=== PATIENT | male | born 1995 | race Two or more races ===

== ENCOUNTER 2020-02-10 11:07 | Inpatient (IN) | payer MEDICAID, OTHER ==
[~2020-02-10] VITALS: Ht 170.2 cm; Wt 91.0 kg
[2020-02-11] MEDS ORDERED: acetaminophen 325mg tablet PO PRN ×2 (13:25)
[2020-02-11] MEDS ORDERED: traZODone 50mg tablet PO PRN (13:25)
[2020-02-11] MEDS ORDERED: magnesium hydroxide 30ml (MOM) UD suspension PO PRN (13:25)
[2020-02-11] MEDS ORDERED: mag hydrox/Alum hydrox/simeth 30ml oral suspension PO PRN (13:25)
[2020-02-11] MEDS ORDERED: loperamide 2mg capsule PO PRN (13:25)
[2020-02-11 14:00] VITALS: BP 127/77
[2020-02-11] MEDS ORDERED: NO HOME MEDS (14:39)
[2020-02-11] MEDS ORDERED: FLU VACC QS2020-21(6MOS UP)/PF 60 MCG/0.5 ML SYRINGE IMVAC ONE (14:45)
--- NOTE | 2020-02-11 16:29 | NUR ---
ADMIT NOTE: Legal Hold: 5150 for DTS Pt brought on to unit by [employer]; pts belongings inventoried, pt showered, and skin check completed by 2 RNs. He is free of skin ailments. Pt states he has felt depressed and vaguely suicidal most my life and no matter how hard he tries he cant fight these feelings. The last 6 months has heightened these feelings. He is overwhelmed, hopeless, anxious and SI with a plan. He has thought about slitting wrists, or driving somewhere to shoot himself. He rates his SI at 7/10 , Depression 7/10, and anxiety 4/10 but they just gave me medications before coming here and they make me feel sleepy and less anxious. Pt is concerned about medications making him too sleepy I dont want to have trouble thinking on my day to day. Pt states recent triggers are his work environment (coworkers make racist comments, he feels judgement since receiving a raise, no teamwork), but despite this he has worked there for 2 years, works hard, and enjoys the job itself. 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 Another recent trigger is potential break up with gf with whom he has a four year old son (she found out I cheated once when I was 20 years old and we were together, she wont look at me the same). Since their estrangement he has been unable to see his son, which is his consistent answer as to why he doesnt kill himself and has a reason to live. Pt also states he has support from his parents and his oralia. Pt also made comments of a paranoid nature, stating people from my work are following me. I know they followed me to the hospital in [place]. And the other day I was talking about puppies then there were 3 puppies on my front lawn. Melissa seen [address] in my neighborhood and I know that they are watching me. Pt states when he feels this way he has difficulty falling and staying asleep. Pt states he does not hear AH, only his internal voice telling him to just do it when he makes plans to commit suicide. He states he saw things in the TV once when I was 11 or 14 but when I turned around it wasnt there when asked about VH. Medical Hx: None aside from a surgery on his shoulder when he was 15 yo r/t cartilage/joint issues Drugs: Tobacco Socially, THC Daily, Alcohol Beer, a few nightly or on the weekend, Cocaine Intermittent, last use 3 weeks ago MH Hx: None Support: Parents, Child, Jainism Assess: +SI, +Paranoid Statements, +Dep, +Anx, Eye Contact: Direct, Pt presents as tired and hopeless, Affect: Blunted Other: Pt would like the Flu Vaccine.
[2020-02-11] MEDS ORDERED: docusate sod 100mg capsule PO PRN (17:05)
[2020-02-11 20:00] VITALS: BP 134/83
[2020-02-11] MEDS: olanzapine 10mg tablet PO SCH (20:54)
--- NOTE | 2020-02-12 00:08 | NUR ---
Legal hold:5150 Client on voluntary/involuntary status for DTS. Report received from ROBBIN Weeks with use of SBAR. Why are they here: Pt brought on to unit by [employer]; pts belongings inventoried, pt showered, and skin check completed by 2 RNs. He is free of skin ailments. Pt states he has felt depressed and vaguely suicidal most my life and no matter how hard he tries he cant fight these feelings. The last 6 months has heightened these feelings. He is overwhelmed, hopeless, anxious and SI with a plan. He has thought about slitting wrists, or driving somewhere to shoot himself. He rates his SI at 7/10 , Depression 7/10, and anxiety 4/10 but they just gave me medications before coming here and they make me feel sleepy and less anxious. Pt is concerned about medications making him too sleepy I dont want to have trouble thinking on my day to day. Pt states recent triggers are his work environment (coworkers make racist comments, he feels judgement since receiving a raise, no teamwork), but despite this he has worked there for 2 years, works hard, and enjoys the job itself. 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 Another recent trigger is potential break up with gf with whom he has a four year old son (she found out I cheated once when I was 20 years old and we were together, she wont look at me the same). Since their estrangement he has been unable to see his son, which is his consistent answer as to why he doesnt kill himself and has a reason to live. Pt also states he has support from his parents and his oralia. Pt also made comments of a paranoid nature, stating people from my work are following me. I know they followed me to the hospital in [place]. And the other day I was talking about puppies then there were 3 puppies on my front lawn. Melissa seen [address] in my neighborhood and I know that they are watching me. Pt states when he feels this way he has difficulty falling and staying asleep. Pt states he does not hear AH, only his internal voice telling him to just do it when he makes plans to commit suicide. He states he saw things in the TV once when I was 11 or 14 but when I turned around it wasnt there when asked about VH. Assessment What has happened this shift: Pt was up and in Dr office at shift change. Pt is with drawn but answers questions. Pt ate snack in group room then went back to his room for the rest of shift. Pt was med compliant has new order for Zyprexa. He received his flu shot and went to bed. S/I, H/I:yes A/VH: yes Sleep:See sleep hrs ADL's:independent Group attendance:none Were meds taken:yes Any med S/E none Mental Status Exam Appearance:clean in green scrubs Eye contact:[good Behavior: with drawn Speech:clear Mood:depressed Affect:flat Thought process:intact Thought Content:family Cognition: A/O x3 Insight: Poor Judgment:Poor Interventions PRN's used: Therapeutic interventions: 1:1 assessment, Medication education, limit setting, Q 15 minute safety checks Restraints/seclusion/emergency medication: NA Justification of Continued Inpatient Treatment : Pt is in need of crisis intervention and medication stabilization.
[2020-02-12] MEDS: LORazepam 1 MG tablet PO PRN ×4 (06:23→20:11)
[2020-02-12 07:56] VITALS: BP 126/83
[2020-02-12 09:38] LABS: HEMOGLOBIN A1C 5.8 % (4.5-6.2)
[2020-02-12 09:43] LABS: CHOL/HDL RATIO 4.9 (0.00-4.99); CHOLESTEROL 171 MG/DL (0-200); HDL CHOLESTEROL 35 MG/DL (35-60); LDL CHOLESTEROL 116 MG/DL (50-100); TRIGLYCERIDES 85 MG/DL (20-135)
--- NOTE | 2020-02-12 17:50 | NUR ---
Nursing Progress Note Legal hold:5150 Client on voluntary/involuntary status for DTS. Report received from RN with use of SBAR. Why are they here: Pt states he has felt depressed and vaguely suicidal most my life and no matter how hard he tries he cant fight these feelings. The last 6 months has heightened these feelings. He is overwhelmed, hopeless, anxious and SI with a plan. He has thought about slitting wrists, or driving somewhere to shoot himself. He rates his SI at 7/10 , Depression /10, and anxiety /10 but they just gave me medications before coming here and they make me feel sleepy and less anxious. Pt is concerned about medications making him too sleepy I dont want to have trouble thinking on my day to day. Pt states recent triggers are his work environment (coworkers make racist comments, he feels judgement since receiving a raise, no teamwork), but despite this he has worked there for 2 years, works hard, and enjoys the job itself. 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 Another recent trigger is potential break up with gf with whom he has a four year old son (she found out I cheated once when I was 20 years old and we were together, she wont look at me the same). Since their estrangement he has been unable to see his son, which is his consistent answer as to why he doesnt kill himself and has a reason to live. Pt also states he has support from his parents and his oralia. Pt also made comments of a paranoid nature, stating people from my work are following me. I know they followed me to the hospital in [place]. And the other day I was talking about puppies then there were 3 puppies on my front lawn. Melissa seen [address] in my neighborhood and I know that they are watching me. Pt states when he feels this way he has difficulty falling and staying asleep. Pt states he does not hear AH, only his internal voice telling him to just do it when he makes plans to commit suicide. He states he saw things in the TV once when I was 11 or 14 but when I turned around it wasnt there when asked about VH. Assessment What has happened this shift: Received Pt in bed sleeping w/o distress at beginning of shift. Pt awoke and was cooperative with vitals. He ate all meals in community room and polite with others. Pt guarded during AM assessments and apologized later Im sorry for snapping at you before. Pts mother dropped off disability paperwork and Pt informed he would have to discuss this with his Dr. Pt c/o anxiety and received Ativan with little effect, so dose was repeated in 45 min with good results. Pt stated I dont want to leave here. Im ok here, referring to his room, where he spent most of the day reading. Pt does not answer personal questions with any detail, or at all. S/I, H/I: +SI A/VH: +AH, +VH Sleep: None this shift ADL's: Independent Group attendance: No groups today Were meds taken: Yes Any med S/E none Mental Status Exam Appearance: Clean, casual Eye contact: Good Behavior: Guarded, isolative Speech: Clear, soft Mood: Depressed, anxious Affect: Flat Thought process: Linear Thought Content: Visiting with family Cognition: A/O x3 Insight: Poor Judgment: Poor Interventions PRN's used: Ativan X2 Therapeutic interventions: 1:1 assessment, Medication education, limit setting, Q 15 minute safety checks, maintain therapeutic mileau. Restraints/seclusion/emergency medication: NA Justification of Continued Inpatient Treatment : Pt is in need of crisis intervention and medication stabilization, and interruption of current crisis.
[2020-02-12 19:00] VITALS: BP 117/72
[2020-02-12] MEDS: olanzapine 10mg tablet PO SCH (20:10)
[2020-02-12] MEDS: olanzapine 10mg tablet PO PRN (20:11)
[2020-02-12 20:52] VITALS: BP 115/94
--- NOTE | 2020-02-12 23:42 | NUR ---
Nursing Progress Note Legal hold:5150 Client on voluntary/involuntary status for DTS. Report received from RN with use of SBAR. Why are they here: Pt states he has felt depressed and vaguely suicidal most my life and no matter how hard he tries he cant fight these feelings. The last 6 months has heightened these feelings. He is overwhelmed, hopeless, anxious and SI with a plan. He has thought about slitting wrists, or driving somewhere to shoot himself. He rates his SI at 7/10 , Depression /10, and anxiety /10 but they just gave me medications before coming here and they make me feel sleepy and less anxious. Pt is concerned about medications making him too sleepy I dont want to have trouble thinking on my day to day. Pt states recent triggers are his work environment (coworkers make racist comments, he feels judgement since receiving a raise, no teamwork), but despite this he has worked there for 2 years, works hard, and enjoys the job itself. 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 Another recent trigger is potential break up with gf with whom he has a four year old son (she found out I cheated once when I was 20 years old and we were together, she wont look at me the same). Since their estrangement he has been unable to see his son, which is his consistent answer as to why he doesnt kill himself and has a reason to live. Pt also states he has support from his parents and his oralia. Pt also made comments of a paranoid nature, stating people from my work are following me. I know they followed me to the hospital in [place]. And the other day I was talking about puppies then there were 3 puppies on my front lawn. Melissa seen [address] in my neighborhood and I know that they are watching me. Pt states when he feels this way he has difficulty falling and staying asleep. Pt states he does not hear AH, only his internal voice telling him to just do it when he makes plans to commit suicide. He states he saw things in the TV once when I was 11 or 14 but when I turned around it wasnt there when asked about VH. Assessment What has happened this shift: Received Pt in bed sleeping w/o distress at beginning of shift. Pt c/o feeling anxious and asked for a Ativan which was helpful. Pt states he feels safe her and wont hurt him self. Pt states that he dose not want to go home. S/I, H/I: +SI A/VH: +AH, +VH Sleep: None this shift ADL's: Independent Group attendance: No groups today Were meds taken: Yes Any med S/E none Mental Status Exam Appearance: Clean, casual Eye contact: Good Behavior: Guarded, isolative Speech: Clear, soft Mood: Depressed, anxious Affect: Flat Thought process: Linear Thought Content: Visiting with family Cognition: A/O x3 Insight: Poor Judgment: Poor Interventions PRN's used: Ativan Zyprexa Therapeutic interventions: 1:1 assessment, Medication education, limit setting, Q 15 minute safety checks, maintain therapeutic mileau. Restraints/seclusion/emergency medication: NA Justification of Continued Inpatient Treatment : Pt is in need of crisis intervention and medication stabilization, and interruption of current crisis.
[2020-02-13] MEDS: traZODone 50mg tablet PO PRN ×2 (00:45→20:49)
[2020-02-13] MEDS ORDERED: ESCITALOPRAM OXALATE 5 MG TABLET PO SCH (08:00)
[2020-02-13 08:54] VITALS: BP 135/72
[2020-02-13] MEDS: LORazepam 1 MG tablet PO PRN (10:18)
--- NOTE | 2020-02-13 16:48 | NUR ---
Nursing Progress Note Legal hold:5150 Client on involuntary status for DTS. Report received from Patti Hopkins RN with use of SBAR. Why are they here: Pt states he has felt depressed and vaguely suicidal most my life and no matter how hard he tries he cant fight these feelings. The last 6 months has heightened these feelings. He is overwhelmed, hopeless, anxious and SI with a plan. He has thought about slitting wrists, or driving somewhere to shoot himself. Pt states recent triggers are his work environment (coworkers make racist comments, he feels judgement since receiving a raise, no teamwork). Another recent trigger is potential break up with gf with whom he has a four year old son (she found out I cheated once when I was 20 years old and we were together, she wont look at me the same). Since their estrangement he has been unable to see his son, which is his consistent answer as to why he doesnt kill himself and has a reason to live.Pt also made comments stating people from my work are following me. I know they followed me to the hospital in [place]. And the other day I was talking about puppies then there were 3 puppies on my front lawn. Melissa seen [address] in my neighborhood and I know that they are watching me. Assessment What has happened this shift: Pt isolates to room most of shift, as he feels overwhelmed and anxious around others. Pt requested Ativan to alleviate some anxiety, but is also upset with himself for feeling this way. I should be able to sit in a room with some people and watch a movie. Immediately after receiving PRN pt said he would go make himself sit out in the group room again; this RN advised the pt let the medication take effect so that he would be calmer instead of immediately overloading his senses in that situation again. Pt agreed. The Ativan was effective and pt visibly looked calmer. He remains suicidal and is unsure whether he would commit his plan to shoot himself but states, I still feel like I want to . Pt continues to have some paranoias and denies AH, stating it is his internal voice. S/I, H/I: +SI A/VH: Denies Sleep: 7 hrs last night ADL's: Independent Group attendance: No groups today Were meds taken: Yes Any med S/E none: none reported nor observed Mental Status Exam Appearance: Clean, wearing unit scrubs Eye contact: Good Behavior: Guarded, isolative Speech: Clear, soft Mood: Depressed, Anxious Affect: Constricted, teary Thought process: Linear Thought Content: upset that he feels anxious, wanting to talk to his son Cognition: A/Ox4 Insight: Poor Judgment: Poor Interventions PRN's used: Ativan 1mg Therapeutic interventions: 1:1 assessment, Medication education, limit setting, Q 15 minute safety checks, maintain therapeutic mileau. Restraints/seclusion/emergency medication: NA Justification of Continued Inpatient Treatment : Pt is in need of crisis intervention and medication stabilization, and interruption of current crisis.
[2020-02-13 19:00] VITALS: BP 127/88
[2020-02-13] MEDS: hydrOXYzine 25 MG tablet PO PRN (19:25)
[2020-02-13] MEDS: olanzapine 10mg tablet PO SCH (20:48)
--- NOTE | 2020-02-14 00:17 | NUR ---
Nursing Progress Note Legal hold:5150 Client on involuntary status for DTS. Report received from Carlos Alberto SIEGEL with use of SBAR. Why are they here: Pt states he has felt depressed and vaguely suicidal most my life and no matter how hard he tries he cant fight these feelings. The last 6 months has heightened these feelings. He is overwhelmed, hopeless, anxious and SI with a plan. He has thought about slitting wrists, or driving somewhere to shoot himself. Pt states recent triggers are his work environment (coworkers make racist comments, he feels judgement since receiving a raise, no teamwork). Another recent trigger is potential break up with gf with whom he has a four year old son (she found out I cheated once when I was 20 years old and we were together, she wont look at me the same). Since their estrangement he has been unable to see his son, which is his consistent answer as to why he doesnt kill himself and has a reason to live.Pt also made comments stating people from my work are following me. I know they followed me to the hospital in [place]. And the other day I was talking about puppies then there were 3 puppies on my front lawn. Melissa seen [address] in my neighborhood and I know that they are watching me. Assessment What has happened this shift: Pt isolates to room most of shift, as he feels overwhelmed and anxious around others. Pt's Chanel rate was 133 at time of vitals. Pt states that he feels very anxious at time EKG done and was normal with heart rate of 95. Prn Atarax given and was helpful. Pt states that he is still having thoughts to hurt him self but has ni plan. Pt was med compliant and cooperative. after meds pt went to bed. S/I, H/I: +SI A/VH: Denies Sleep: 7 hrs last night ADL's: Independent Group attendance: No groups today Were meds taken: Yes Any med S/E none: none reported nor observed Mental Status Exam Appearance: Clean, wearing unit scrubs Eye contact: Good Behavior: Guarded, isolative Speech: Clear, soft Mood: Depressed, Anxious Affect: Constricted, teary Thought process: Linear Thought Content: upset that he feels anxious, wanting to talk to his son Cognition: A/Ox4 Insight: Poor Judgment: Poor Interventions PRN's used: Atarax, Trazodone Therapeutic interventions: 1:1 assessment, Medication education, limit setting, Q 15 minute safety checks, maintain therapeutic mileau. Restraints/seclusion/emergency medication: NA Justification of Continued Inpatient Treatment : Pt is in need of crisis intervention and medication stabilization, and interruption of current crisis.
[2020-02-14 08:00] VITALS: BP 142/81
[2020-02-14] MEDS: ESCITALOPRAM OXALATE 5 MG TABLET PO SCH (08:06)
[2020-02-14] MEDS: hydrOXYzine 25 MG tablet PO PRN ×3 (09:16→21:22)
--- NOTE | 2020-02-14 15:59 | NUR ---
Nursing Progress Note Legal hold:5250 Client on involuntary status for DTS. Report received from Patti Hopkins RN with use of SBAR. Why are they here: Pt states he has felt depressed and vaguely suicidal most my life and no matter how hard he tries he cant fight these feelings. The last 6 months has heightened these feelings. He is overwhelmed, hopeless, anxious and SI with a plan. He has thought about slitting wrists, or driving somewhere to shoot himself. Pt states recent triggers are his work environment (coworkers make racist comments, he feels judgement since receiving a raise, no teamwork). Another recent trigger is potential break up with gf with whom he has a four year old son (she found out I cheated once when I was 20 years old and we were together, she wont look at me the same). Since their estrangement he has been unable to see his son, which is his consistent answer as to why he doesnt kill himself and has a reason to live.Pt also made comments stating people from my work are following me. I know they followed me to the hospital in [place]. And the other day I was talking about puppies then there were 3 puppies on my front lawn. Melissa seen [address] in my neighborhood and I know that they are watching me. Assessment What has happened this shift: Patient was asleep at change of shift and up for breakfast. Patient took his medication. Patient spoke to RN and when RN asked patient if he felt like hurting himself, patient denied suicidal ideation. RN read admit note and yesterday and for a long time patient has been feeling suicidal. RN went back to speak to patient and he said yes he feels like he wants to . Patient is very depressed. Patient denies audio/visual hallucinations. Patient denies feelings of paranoia. Patient asked for anti-anxiety meds 4 times today. RN was able to give him medication x 2. RN sat with patient and attempted to teach him parasympathetic breaths to help calm him. Patient did it for a few minutes and thanked me. Not sure if patient got it. Patient went from a 5150 to a 5250 today. S/I, H/I: +SI A/VH: Denies Sleep: up for most of the day. ADL's: Independent Group attendance: No groups today Were meds taken: Yes Any med S/E none: none reported nor observed Mental Status Exam Appearance: Clean, wearing unit scrubs Eye contact: Good Behavior: Guarded, isolative Speech: Clear, soft Mood: Depressed, Anxious Affect: Depressed Thought process: Linear Thought Content: upset that he feels anxious, Cognition: A/Ox4 Insight: Poor Judgment: Poor Interventions PRN's used: Atarax Therapeutic interventions: 1:1 assessment, Medication education, limit setting, Q 15 minute safety checks, maintain therapeutic mileau. Restraints/seclusion/emergency medication: NA Justification of Continued Inpatient Treatment : Pt is in need of crisis intervention and medication stabilization, and interruption of current crisis.
[2020-02-14 19:00] VITALS: BP 123/84
[2020-02-14] MEDS: olanzapine 10mg tablet PO SCH (19:23)
[2020-02-14] MEDS: traZODone 50mg tablet PO PRN (19:23)
--- NOTE | 2020-02-15 00:40 | NUR ---
Nursing Progress Note: Legal hold: 5250 Client on involuntary status for DTS Report received from nurse with use of SBAR: ROBBIN Carcamo Why are they here: Pt states he has felt depressed and vaguely suicidal most my life and no matter how hard he tries he cant fight these feelings. The last 6 months has heightened these feelings. He is overwhelmed, hopeless, anxious and SI with a plan. He has thought about slitting wrists, or driving somewhere to shoot himself. Pt states recent triggers are his work environment (coworkers make racist comments, he feels judgement since receiving a raise, no teamwork). Another recent trigger is potential break up with gf with whom he has a four year old son (she found out I cheated once when I was 20 years old and we were together, she wont look at me the same). Since their estrangement he has been unable to see his son, which is his consistent answer as to why he doesnt kill himself and has a reason to live. Pt also made comments stating people from my work are following me. I know they followed me to the hospital in [place]. And the other day I was talking about puppies then there were 3 puppies on my front lawn. Melissa seen [address] in my neighborhood and I know that they are watching me. Assessment What has happened this shift: Received pt. laying in bed in a dark room at the beginning of the shift, he continued to isolate here throughout the shift. This abstract writer introduced self and established rapport, pt. provided an appropriate greeting and requested his HS medications as soon as possible. 1:1 completed at bedside, pt. presents as cooperative, fatigued, anxious, guarded, and withdrawn. His speech is soft with some latency in response. Pt. denies any S/I, H/I, or A/V/CANSECO however appears internally preoccupied AEB distractibility. He appears depressed and may be minimizing s/s. When questioned by this abstract writer regarding any thoughts that others may want to hurt him, pt. hesitates with a response but then sates, "No." Pt. stares at this abstract writer wide-eyed, appearing paranoid/anxious throughout the assessment. He reports he believes he will be leaving on Sunday and is anxious to see his four year old son. Pt. accepts PRN Trazodone at HS and later requests PRN Atrax per anxiety. Pt. appears to be resting comfortably. S/I, H/I: Denies A/VH: Denies, however appears internally preoccupied AEB distractibility Sleep: Pt. requests HS medications at the beginning of the shift and retreats to bed early ADL's: Independent Group attendance: N/A Were meds taken: Yes Any med S/E: None Mental Status Exam Appearance: Neat and appropriately dressed Eye contact: Good, intense at times Behavior: Cooperative, fatigued, anxious, guarded, and withdrawn Speech: Soft, delayed response at times Mood: Guarded Affect: Constricted Thought process: Linear Thought Content: Possible A/V/CANSECO and paranoid delusions Cognition: A&O X3 (not to why here) Insight: Poor Judgment: Poor Interventions PRN's used: Atrax and Trazodone Therapeutic interventions: Introduced self and established rapport, maintained a safe and therapeutic environment, ensured contract for safety, provided clear and simple instructions, provided active listening, monitored behavior and need for intervention, and maintained Q 15min safety checks. Restraints/seclusion/emergency medication: N/A Justification of Continued Inpatient Treatment: Per Dr. Madrid, pt. requires medication adjustments and a safe and therapeutic environment. He will discharge home with his parents.
[2020-02-15 08:00] VITALS: BP 134/92
[2020-02-15] MEDS: ESCITALOPRAM OXALATE 5 MG TABLET PO SCH (08:00)
[2020-02-15] MEDS: hydrOXYzine 25 MG tablet PO PRN ×4 (08:02→21:45)
[2020-02-15 08:08] VITALS: BP 134/92
--- NOTE | 2020-02-15 12:27 | NUR ---
Nursing Progress Note: Legal hold: 5250 Client on involuntary status for DTS Report received from nurse with use of SBAR: Patti Hopkins RN Why are they here: Pt states he has felt depressed and vaguely suicidal most my life and no matter how hard he tries he cant fight these feelings. The last 6 months has heightened these feelings. He is overwhelmed, hopeless, anxious and SI with a plan. He has thought about slitting wrists, or driving somewhere to shoot himself. Pt states recent triggers are his work environment (coworkers make racist comments, he feels judgement since receiving a raise, no teamwork). Another recent trigger is potential break up with gf with whom he has a four year old son (she found out I cheated once when I was 20 years old and we were together, she wont look at me the same). Since their estrangement he has been unable to see his son, which is his consistent answer as to why he doesnt kill himself and has a reason to live. Pt also made comments stating people from my work are following me. I know they followed me to the hospital in [place]. And the other day I was talking about puppies then there were 3 puppies on my front lawn. Melissa seen [address] in my neighborhood and I know that they are watching me. Assessment What has happened this shift: Received pt. up in the hallway pacing at the beginning of the shift, upon seeing this gag writer he again requests his medications as soon as possible. Pt. then returns back to his room and sits completing a word puzzle at bedside. 1:1 completed, pt. continues to present as anxious, guarded, and withdrawn. His speech remains soft with latency of response, and pt. appears to be distracted when responding to this writers questions . He continues to deny any S/I, however admits to some depression. When questioned further by this gag writer, pt. states, "About going home and about my girlfriend," but does not elaborate. Pt. also reports ongoing anxiety and requests PRN Atrax. First dose is ineffective and MRX1 dose administered with effectiveness. Pt. is also encouraged to use coping skills to relieve his anxiety (deep breathing and listening to music), and he complies with some effectiveness. Pt. isolates in his room throughout most of the shift, and again appears paranoid and fearful to be around others. He refuses lunch reporting that he is not hungry, will continue encourage participation on the unit and monitor. S/I, H/I: Denies A/VH: Denies, however appears internally preoccupied AEB distractibility Sleep: Pt. reports she slept well, sleep hours are 7.5 ADL's: Independent Group attendance: N/A Were meds taken: Yes Any med S/E: None Mental Status Exam Appearance: Neat and appropriately dressed Eye contact: Good, intense at times Behavior: Cooperative, fatigued, anxious, guarded, and withdrawn Speech: Soft, delayed response. Responds to direct questions only. Mood: Guarded Affect: Constricted Thought process: Linear Thought Content: Possible A/V/CANSECO and paranoid delusions Cognition: A&O X3 (not to why here) Insight: Poor Judgment: Poor Interventions PRN's used: Atrax Therapeutic interventions: Maintained a safe and therapeutic environment, ensured contract for safety, provided clear and simple instructions, provided active listening, monitored behavior and need for intervention, encouraged the use of coping skills such as deep breathing, and maintained Q 15min safety checks. Restraints/seclusion/emergency medication: N/A Justification of Continued Inpatient Treatment: Per Dr. Madrid, pt. requires medication adjustments and a safe and therapeutic environment. He will discharge home with his parents.
[2020-02-15] MEDS: olanzapine 10mg tablet PO SCH (20:16)
[2020-02-15] MEDS: traZODone 50mg tablet PO PRN (20:16)
[2020-02-15 20:31] VITALS: BP 145/96
[2020-02-15] MEDS: olanzapine 10mg tablet PO PRN (21:45)
--- NOTE | 2020-02-15 23:58 | NUR ---
Nursing Progress Note: Legal hold: 5250 Client on involuntary status for DTS Report received from nurse with use of SBAR: ROBBIN Carcamo Why are they here: Pt states he has felt depressed and vaguely suicidal most my life and no matter how hard he tries he cant fight these feelings. The last 6 months has heightened these feelings. He is overwhelmed, hopeless, anxious and SI with a plan. He has thought about slitting wrists, or driving somewhere to shoot himself. Pt states recent triggers are his work environment (coworkers make racist comments, he feels judgement since receiving a raise, no teamwork). Another recent trigger is potential break up with gf with whom he has a four year old son (she found out I cheated once when I was 20 years old and we were together, she wont look at me the same). Since their estrangement he has been unable to see his son, which is his consistent answer as to why he doesnt kill himself and has a reason to live. Pt also made comments stating people from my work are following me. I know they followed me to the hospital in [place]. And the other day I was talking about puppies then there were 3 puppies on my front lawn. Melissa seen [address] in my neighborhood and I know that they are watching me. Assessment What has happened this shift: Patient was up on the unit at shift change. He would come out of his room walk the emma then return. Pt states that he dose not like having a room mate cause it makes him anxous. Pt is depressed but denies S/I. He has paranoid thoughts and reports voices. Pt has a court date tomorrow. S/I, H/I: Denies A/VH: Denies, however appears internally preoccupied AEB distractibility Sleep: Pt. reports she slept well, sleep hours are 7.5 ADL's: Independent Group attendance: N/A Were meds taken: Yes Any med S/E: None Mental Status Exam Appearance: Neat and appropriately dressed Eye contact: Good, intense at times Behavior: Cooperative, fatigued, anxious, guarded, and withdrawn Speech: Soft, delayed response. Responds to direct questions only. Mood: Guarded Affect: Constricted Thought process: Linear Thought Content: Possible A/V/CANSECO and paranoid delusions Cognition: A&O X3 (not to why here) Insight: Poor Judgment: Poor Interventions PRN's used: Atrax Therapeutic interventions: Maintained a safe and therapeutic environment, ensured contract for safety, provided clear and simple instructions, provided active listening, monitored behavior and need for intervention, encouraged the use of coping skills such as deep breathing, and maintained Q 15min safety checks. Restraints/seclusion/emergency medication: N/A Justification of Continued Inpatient Treatment: Per Dr. Madrid, pt. requires medication adjustments and a safe and therapeutic environment. He will discharge home with his parents.
[2020-02-16] MEDS: ESCITALOPRAM OXALATE 5 MG TABLET PO SCH (08:44)
[2020-02-16 08:47] VITALS: BP 159/91
[2020-02-16] MEDS: hydrOXYzine 25 MG tablet PO PRN (10:01)
--- NOTE | 2020-02-16 11:38 | NUR ---
Nursing Progress Note: Legal hold: 5250 Client on involuntary status for DTS Report received from nurse with use of SBAR: ROBBIN Herrera Why are they here: Pt states he has felt depressed and vaguely suicidal most my life and no matter how hard he tries he cant fight these feelings. The last 6 months has heightened these feelings. He is overwhelmed, hopeless, anxious and SI with a plan. He has thought about slitting wrists, or driving somewhere to shoot himself. Pt states recent triggers are his work environment (coworkers make racist comments, he feels judgement since receiving a raise, no teamwork). Another recent trigger is potential break up with gf with whom he has a four year old son (she found out I cheated once when I was 20 years old and we were together, she wont look at me the same). Since their estrangement he has been unable to see his son, which is his consistent answer as to why he doesnt kill himself and has a reason to live. Pt also made comments stating people from my work are following me. I know they followed me to the hospital in [place]. And the other day I was talking about puppies then there were 3 puppies on my front lawn. [place] seen [address] in my neighborhood and I know that they are watching me. Assessment What has happened this shift: Received pt. up in the hallway at the beginning of the shift, he attends breakfast and then isolates in his room as is his routine. 1:1 completed at bedside, pt. continues to present as anxious, guarded, and withdrawn. He responds minimally to direct questions only, however latency of response appears to be improved . Pt. continues to deny any S/I, however admits ongoing depression and anxiety r/t his desire to go home and be with his son, but he will not elaborate. Pt. denies any any A/V/CANSECO, but continues to present with internal preoccupation AEB distractibility. He also appears visibly anxious and is observed to be fidgeting during assessment with an intense stare at times. Pt. reports he is aware that he will have his court hearing today and feels prepared. He continues to be encouraged to use coping skills and is also encouraged to participate on the unit, he does attend group (bowling) with others. However requests PRN Atrax during group, administered with effectiveness. S/I, H/I: Denies A/VH: Denies, however appears internally preoccupied AEB distractibility Sleep: Pt. reports he slept well, sleep hours are 8.25 ADL's: Independent Group attendance: Yes Were meds taken: Yes Any med S/E: None Mental Status Exam Appearance: Neat and appropriately dressed Eye contact: Good, intense at times Behavior: Cooperative, anxious, guarded, and withdrawn Speech: Soft, delayed response. Responds to direct questions only. Mood: Guarded Affect: Constricted Thought process: Linear Thought Content: Possible A/V/CANSECO and paranoid delusions Cognition: A&O X3 (not to why here) Insight: Poor Judgment: Poor Interventions PRN's used: Atrax Therapeutic interventions: Maintained a safe and therapeutic environment, ensured contract for safety, provided clear and simple instructions, provided active listening, monitored behavior and need for intervention, encouraged the use of coping skills and participation on the unit, and maintained Q 15min safety checks. Restraints/seclusion/emergency medication: N/A Justification of Continued Inpatient Treatment: Per Dr. Madrid, pt. continues to require a safe and supportive environment and encouragement to participate on the unit. He will discharge home with his parents.
--- NOTE | 2020-02-16 14:07 | NUR ---
Initial: Pt admit DX depression on 5150 hold and DTS per MD note. Hx cocaine abuse and drinks 40oz etoh daily per EMR. RD d/w RN regarding routine thiamin, folic, MVI if MD agreeable given etoh hx. Pt PO fluctuates though mostly 75-100% avg regular diet meeting needs. LBM 02/12. No nutrition concerns at this time. Will continue to monitor. Rec: 1. continue regular diet 2. thiamin, folic, MVI for etoh hx if MD agreeable 3. routine bowel care 4. wts per rx Addendum: 02/16/20 at [address] Amended: Links added.
--- NOTE | 2020-02-16 15:28 | NUR ---
PROBABLE CAUSE HEARING Patients Name: Kalyan Reyes Admission Date: 02/11/2020 Date of 5150: 02/10/2020 Written by: Brayan TREJO Criteria: DTS Summary of Facts: Client making suicidal statements, says he will cut, hang, or shoot himself [place] Date of 5250: 02/14/2020 Written by: karine Criteria: DTS Summary of Facts: Efren is having social issues related to his relationship and has moved out of his home, he is having trust issues. He feels paranoid and thinks he is being followed. He is still depressed. Diagnosis: Behavior during 72 HRS: Anxious, guarded, withdrawan. Denies S/I, reports depression. Denies AVH. Denying S/I since 02/14 FOOD: 50 SLEEPIN ADLS: ind SKILLED NURSING: MEDICATION DOSAGE FREQUENCY DURATION Zyprexa 10 mg po q hs, Lexapro 10 mg q day, atarax 75 q 6 last took today, trazodone 50 mg q hs last took last night
[2020-02-16] MEDS ORDERED: OLAN10TA19 PO (16:55)
[2020-02-16] MEDS ORDERED: TRAZ-251 PO (16:55)
[2020-02-16] MEDS ORDERED: ESCI10TA61 PO (16:55)
[2020-02-16] MEDS ORDERED: HYDR50TA65 PO (17:46)
--- NOTE | 2020-02-16 18:41 | NUR ---
Discharge note Patient d/c home to Mom left with all his belongings d/c packet and instructions and follow up information ,and [facility]. He was escorted to lobby by [employer].
== END 2020-02-16 18:42 | disposition home or self-care (01) | DRG 751 ==
LOC: ADULT MH 02-11 13:20
PROVIDERS: ADMIT Psychiatry & Neurology Psychiatry; ATTEND Psychiatry & Neurology Psychiatry
DX: F32.3 Major depressive disorder, single episode, severe with psychotic features (principal); F10.10 Alcohol abuse, uncomplicated; F12.10 Cannabis abuse, uncomplicated; R45.851 Suicidal ideations; F14.10 Cocaine abuse, uncomplicated; F41.1 Generalized anxiety disorder; Z83.3 Family history of diabetes mellitus; Z23 Encounter for immunization
CPT/HCPCS: 36415; 80061; 83036; 87081; 93005; Q0177; Q2039